=== PATIENT | male | born 1975 | race Caucasian/White ===

== ENCOUNTER 2021-06-03 21:55 | Inpatient (IN) | payer OTHER ==
[~2021-06-03] VITALS: Ht 188 cm; Wt 144.6 kg
[~2021-06-03 21:55] MED LIST: CITALOPRAM HBR40 MG PO; CYCLOBENZAPRINE10 MG PO; HYDROCODON-ACE1 EAC8 PO; IBUPROFEN800 MG PO; TESTOSTERO100 MG/1 M IM
--- OUTSIDE RECORDS SUMMARY | 2021-06-03 21:58 | XMS ---
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 Madelaine VISIT COUNT (12 MO.) 1 DYAN Pacheco TOTAL 1 NOTE: Visits indicate total known visits. ED/UCC VISIT TRACKING (12 MO.) 06/03/2021 21:56 DYAN [place] TYPE: Emergency COMPLAINT: - FLU SYMPTOMS INPATIENT VISIT TRACKING (12 MO.) No inpatient visits to display in this time frame [email or web address]
[2021-06-03] MEDS ORDERED: ZOLPIDEM TARTRA10 MG PO (22:58)
[2021-06-03] MEDS ORDERED: NYSTATIN100000 UN1 PO (22:58)
[2021-06-03] MEDS ORDERED: OMEPRAZOLE40 MG PO (22:58)
[2021-06-03] MEDS ORDERED: DULOXETINE HCL60 MG PO (22:58)
[2021-06-03] MEDS ORDERED: TESTOSTERO200 MG/1 M (22:58)
[2021-06-03] MEDS ORDERED: LOSARTAN-HCTZ1 EAC1 PO (22:58)
[2021-06-03] MEDS ORDERED: PRAZOSIN HCL1 MG PO (22:58)
[2021-06-03] MEDS ORDERED: BUPROPION XL450 MG PO (22:58)
[2021-06-03] MEDS ORDERED: ZANAFLEX4 MG PO (22:59)
[2021-06-03] MEDS ORDERED: METOPROLOL TART50 MG PO (22:59)
[2021-06-03] MEDS ORDERED: METOPROLOL TART25 MG (22:59)
--- NOTE | 2021-06-04 03:46 | NUR ---
pt ARRIVED TO FLOOR AT 0255 VIA STRETCHER. MOVED FROM STRETCHER TO BED INDEPENDENTLY, UNSTEADY ON FEET. pt ANXIOUS DOES NOT LIKE BEING ALONE. DISCUSSED VISITOR POLICY. pt REPORTS PAIN IMPROVED WITH PAIN MEDICATION. REPORTS NAUSEA, REQUESTED SOMETHING TO EAT. EDUCATION DONE. pt SITTING ON THE SIDE OF THE BED, SKIN HOT, PIN[place] RED DOTS NOTED ON CHEST, BACK AND ABD. LUNGS CLEAR, SATS MID 90'S ON ROOM AIR. HR 110'S. pt REFUSING SOME CARES AT THIS TIME. CALL LIGHT WITHIN REACH. LIVES AT HOME WITH MOTHER AND GIRLFRIEND. UNABLE TO DO "CHORES" WITHOUT ASSISTANCE.
--- NOTE | 2021-06-04 04:31 | NUR ---
IN TO TAKE BP. pt REQUESTED TO GET UP TO VOID. REQUIRED LIGHT ASSISTANCE TO BATHROOM. HR 120 WHILE AMBULATING. pt VOIDED DARK URINE. REPORTED A LIQUID BM. BACK TO BED. MORE STEADY ON FEET, DID NOT REQUIRE ASSISTANCE. OFFERED CHAIR. pt REQUESTED TO SIT ON THE SIDE OF THE BED AND LOOK OUT THE DOOR. pt REPORTS FEELING LONELY AND ASKED FOR SOMETHING TO KNOCK HIM OUT OR A SLEEP AID. REMINDED pt IT IS IN THE EARLY AM AND ENCOURAGED REST. CALL LIGHT WTIHIN REACH.
--- NOTE | 2021-06-04 05:21 | NUR ---
CALL LIGHT ON. pt UP TO VOID, REPORTED A BM, NOTHING NOTED IN TOILET. pt SETTLED IN THE CHAIR. CALL LIGHT WITHIN REACH. PRN PAIN MEDICATION GIVEN FOR 8/10 PAIN.
--- NOTE | 2021-06-04 07:08 | NUR ---
CALL LIGHT ON. pt UP TO VOID AND BACK TO CHAIR. STEADY ON FEET. REPORTED A HEADACHE 7/10 AND A "LITTLE" NAUSEA. CALL LIGHT WITHIN REACH.
--- NOTE | 2021-06-04 07:30 | NUR ---
report recieved. PATIENT IS SITTING UP IN CHAIR.
--- NOTE | 2021-06-04 08:30 | NUR ---
assessment done. DR. DEL RIO IN ROOM TO SEE PATIENT. PATIENT C/O OF NAUSEA AND OVER ALL DISCOMFORT. HAS FLAT AFFECT. IVF PATENT.
--- NOTE | 2021-06-04 08:45 | NUR ---
AMBULATED TO BR TO VOID TO URINAL AND EXPELL LIQUID STOOL, STOOL SENT TO LAB. PATIENT IS STABLE ON FEET. C/O SLIGHT DIZZINESS WITH MOVENENT. SITTING IN CHAIR, STATES "I DON'T FEEL WELL AT ALL" REQUESTING NAUSEA AND PAIN MEDICATION. WILL GIVE THIS WHEN AVAILABLE.
--- NOTE | 2021-06-04 09:45 | NUR ---
ZOFRAN 4 MG IV A LONG WITH ROUTINE MEDICATIONS.
--- NOTE | 2021-06-04 10:05 | NUR ---
OXYCODONE 10 MG PO GIVEN FOR PAIN. WILL START BOWEL TODAY, WILL HAVE COLONOSCOPY TOMORROW.
--- NOTE | 2021-06-04 10:20 | NUR ---
UP TO BR TO VOID AND EXPELL SMALL LIQUID STOOL, THIS STOOL SPEC SENT TO LAB. PATIENT NOW SITTNG AT BEDSIDE. CONTINUES TO C/O PAIN AND NAUSEA. MAG INFUSING TO R ARM IV SITE.
--- NOTE | 2021-06-04 10:57 | NUR ---
CALL LIGHT ANSWERED. PATIENT SITTING ON SIDE OF BED. REQUESTS SPOON FOR JELLO AND C/O OF PAIN IN IV SITE IN RIGHT AC. WARM BLANKET PROVIDED FOR COMFORT ON RIGHT ARM, FARAZ NORTON NOTIFIED. CALL LIGHT AND PERSONAL ITEMS IN PLACE.
--- NOTE | 2021-06-04 11:17 | NUR ---
CONTINUE TO SIT AT BEDSIDE, VISITING WITH HIS MOTHER. PATIENT GETS VERY EMOTIONAL AT TIMES. NEEDS MUCH EMOTIONAL SUPPORT.
--- NOTE | 2021-06-04 11:45 | NUR ---
DR. GUERRIER HERE TO SEE PATIENT.
--- NOTE | 2021-06-04 12:10 | NUR ---
THIS FEDERAL LAW CLERK ANSWERED CALL LIGHT. PATIENT REQUESTS ASSISTANCE TO BR. MOTHER IN ROOM. PATIENT BACK TO SIDE OF BED, TABLE WITH PERSONAL ITEMS AND CALL LIGHT IN REACH. PATIENT NOT SURE IF HE WANTS A BEDBATH "I MAY JUST SKIP IT TODAY"
--- NOTE | 2021-06-04 12:20 | NUR ---
ASSESSMENT DONE. CONTINUES TO C/O OVER ALL DISCOMFORT. STOOD AT BEDSIDE TO VOID TO URINAL 100 ML OF CONCENTRATED URINE. PATIENT STATES HE STILL FEELS LIKE HE NEEDS TO VOID. BLADDER SCAN DONE AND SHOWED TOTAL OF 14 ML IN BLADDER. PATIENT IS LAYING IN BED, VISITING WITH HIS MOTHER. MG RIDERS INFUSED. IVF INFUSING AT 200 ML/HR. ENC TO TAKE BOWEL PREP.
--- NOTE | 2021-06-04 13:42 | EKG ---
[facility] [address] [facility] [place] [address] Signed Sinus tachycardia Left anterior fascicular block Minimal voltage criteria for LVH, may be normal variant Abnormal ECG No previous ECGs available Confirmed by VANDA DEL RIO MD ([id number]) on 06/04/2021 1:41:56 PM Electronically Signed By: VANDA DEL RIO MD 06/04/21 1342 PATIENT NAME: ETHANCRESCENCIOJENNY Electrocardiogram DATE OF : 73 PHYSICIAN: VANDA DEL RIO MD REPORT #: [id number] REPORT IS CONFIDENTIAL AND NOT TO BE RELEASED WITHOUT AUTHORIZATION
--- NOTE | 2021-06-04 13:43 | NUR ---
MED REC COMPLETED BY PHARMACY
--- NOTE | 2021-06-04 13:45 | NUR ---
UP TO BR FOR BM, CONTINUES TO HAVE SMALL LIQ STOOLS. MOTHER REMAINS IN ROOM.
--- NOTE | 2021-06-04 14:04 | NUR ---
PT ON PRECAUTIONS, WILL FOLLOW NEEDED
--- NOTE | 2021-06-04 14:47 | NUR ---
PATIENT UP AND IN SHOWER AT THIS TIME. MOTHER IN ROOM.
--- NOTE | 2021-06-04 15:30 | NUR ---
ASSESSMENT UNCHANGED. OXYCODONE 10 MG PO GIVEN FOR PAIN.
--- NOTE | 2021-06-04 16:35 | NUR ---
PATIENT SUPPORT PERSON (MOTHER ) REMAINS IN ROOM. PATIENT HAS LONG HISTORY OR ANXIETY, PTSD, DEPRESSION, NIGHT TERRORS. SINCE PATIENT SUPPORT PERSON HAS BEEN AT BEDSIDE THEY PATIENT HAS BEEN MORE CALM AND LESS EMOTIONAL. PATIENT TO BE TRANSFERRED TO [facility] THIS EVENING.
--- NOTE | 2021-06-04 17:00 | NUR ---
REPORT TO MED-SURG.
--- NOTE | 2021-06-04 17:20 | NUR ---
TO MED-SURG VIA BED.
--- NOTE | 2021-06-04 17:22 | NUR ---
PT TRANSFERED FROM CCU ON BED WITH MOTHER AND RN CIERRA. PT RATES PAIN 6\10 DECLINED TYLENOL. REPORTS A LITTLE NAUSEA. IV CURRENTLY INFUSING AT 200ML HR. REPORTS PAIN IN THE RIGHT WRIST, JUST NOTICED IT AND DOES NOT KNOW WHAT HE DID TO IT. ASSESSED IT AND CAN NOT SEE ANY DEFICITS.
--- NOTE | 2021-06-04 18:08 | NUR ---
PATIENT UP TO BATHROOM TO VOID, BM WITH SBA. MOM IS IN ROOM WITH PATIENT.
--- NOTE | 2021-06-04 19:24 | NUR ---
REPORT RECEIVED FROM FARAZ ROD. ISOLATION PRECAUTIONS. ASSUMED CARE OF pt.
--- NOTE | 2021-06-04 20:30 | NUR ---
PT CALLED AT 2020 AFTER HE WAS DONE IN THE BATHOOM. BM FULLY BROWN, WITH SEDIMENT. NOTED PT WITH STILL NEARLY FULL BOTTLE OF BOWEL PREP. EDUCATED PT ON TAKING THE REST. HE WAS RELUCTANT, BUT EXPLAINED WHY. PT PRIMARY RN AWARE OF WHAT PT SAID. SET UP COMMODE NEXT TO BED, WITH CLEANING SUPPLIES AND GARBAGE WITHIN REACH. ENCOURAGED PT TO CALL WHEN HE IS DONE WITH USING THE BSC. CALL LIGHT WITHIN REACH.
--- NOTE | 2021-06-04 21:25 | NUR ---
IN pt ROOM FOR VS, BP 165/104. SCHEDULED MEDICATIONS ADMINISTERED. pt RATES PAIN 8/10 IN BACK. PRN PAIN MEDICATION ADMINISTERED. ASSESSMENT COMPLETE. pt UP TO BSC AT THIS TIME FOR BM. pt ENCOURAGED TO FINISH BOWEL PREP. LIQUID STOOL BROWN IN COLOR. IV SITE FLUSHED WNL, IV ANTIBIOTIC INFUSING WNL. CALL LIGHT IN REACH.
--- NOTE | 2021-06-04 22:55 | NUR ---
CALL LIGHT ANSWERED. pt C/O NAUSEA. PRN NAUSEA MEDICATION ADMINISTERED. IVF INFUSING WNL. BSC EMPTIED, BROWN LIQUID STOOL. URINE EMPTIED FROM URINAL, CONCENTRATED. pt REQUESTING MORE PAIN MEDICATION FOR 10/10 PAIN IN GROIN, BACK AND SLEEP MEDICATION. MEDICATIONS ADMINISTERED AT THIS TIME, SEE EMAR. CALL LIGHT IN REACH. NO ADDITIONAL REQUESTS.
--- NOTE | 2021-06-05 00:27 | NUR ---
CALL LIGHT ANSWERED, IV PUMP ALARMING. DISTAL OCCLUSION ON PUMP. INFUSING WNL ORDERED. URINE EMPTIED, LIQUID STOOL EMPTIED, LIGHT BROWN/GREEN IN COLOR. pt NPO AT THIS TIME. NO ADDITIONAL NEEDS. CALL LIGHT IN REACH.
--- NOTE | 2021-06-05 02:28 | NUR ---
pt RESTING IN BED. LIGHTS OFF IN ROOM. NO DISTRESS NOTED. IVF INFUSING ORDERED.
--- NOTE | 2021-06-05 03:31 | NUR ---
NEW BAG IVF INFUSING WNL. pt RESTING ON BED ON BACK, EYES CLOSED, SNORING. NO DISTRESS NOTED. LIGHTS OFF IN ROOM. CALL LIGHT IN REACH.
--- NOTE | 2021-06-05 05:45 | NUR ---
CALL LIGHT ANSWERED. WARM BLANKET PROVIDED REQUESTED. PRN PAIN MEDICATION ADMINISTERED FOR 8/10 REPORTED GENERAL PAIN, BACK PAIN. BOWEL TONES ACTIVE X 4, ABD SOFT. BSC EMPTIED, CLEAR GREEN STOOL. URINAL EMPTIED. pt C/O NAUSEA, PRN MEDICATION ADMINISTERED. CALL LIGHT IN REACH.
--- NOTE | 2021-06-05 06:51 | CONS ---
[facility] [address] [place], [place] [address] Signed DATE OF CONSULTATION: 06/04/2021 CHIEF COMPLAINT: Lower abdominal pain. HISTORY OF PRESENT ILLNESS: Izaiah is a 45-year-old gentleman who is significantly disabled and still lives with his mother. He drives once in a while, but is not , has no children. Apparently, he has had troubles with his intestines clear back to when he was a kid. He describes multiple colonoscopies in the past. He thinks he had one somewhere in his late 30s or early 40s with Dr. Schulz. He is pretty sure colonic polyps have been removed. His mom is with him at the bedside today. She apparently has had colonoscopies with Dr. Schulz as well. She had cancerous polyps requiring a colectomy with Dr. Schulz. Neither one of them recognize the term ulcerative colitis or Crohn disease. He has had trouble with oral sores and a toothache and is down now about 50 pounds over the last couple of months. He took an antibiotic, but he does not recall that was specifically for the tooth. He describes alternating constipation and diarrhea. He said that he was constipated, so we took some enemas and laxatives and finally got the stool to come out and now, he is having diarrhea. He is having bilateral lower abdominal pain and feeling a little nauseated and vomiting. He apparently was COVID positive and had it a few weeks ago. He does not seem to have any COVID symptoms currently specifically with respect to the GI system. He came to the emergency room last night where he had some lower abdominal tenderness and elevated white count. Chest x-ray was unremarkable. His CT scan of abdomen and pelvis shows what looks like some inflammatory changes in the transverse colon, left colon and rectosigmoid junction. He has been admitted to the Internal Medicine Service and started on IV fluids and magnesium replacement. I was asked to see him in consultation for consideration of a colonoscopy. PAST MEDICAL HISTORY: Chronic pain, arthritis, blood disorder, fibromyalgia, depression, PTSD, night terrors, chronic diarrhea, hypertension, gastroesophageal reflux disease, insomnia, colonic polyps, and obesity. PAST SURGICAL HISTORY: Cholecystectomy, tonsillectomy, left knee surgery, scrotal surgery, tympanostomy and multiple colonoscopies. SOCIAL HISTORY: He seldom has a drink, not sure if he smokes. He lives with his mother at [phone]. Apparently, she is getting next week and Izaiah is engaged to be although has no children, they prefer the [email or web address]. Nader Damon is a nurse practitioner. Dr. Schulz has done his colonoscopies in the past. Electronically Signed By: DERRICK GUERRIER MD 06/05/21 0651 PATIENT NAME: IZAIAH SHELDON CONSULTATION DATE OF : 73 REPORT #: [id number] PHYSICIAN: DERRICK GUERRIER MD PCP: NADER DAMON REPORT IS CONFIDENTIAL AND NOT TO BE RELEASED WITHOUT AUTHORIZATION [facility] [address] [place] [id number] Signed FAMILY HISTORY: Mom had cancerous polyps requiring a colectomy with Dr. Schulz. REVIEW OF SYSTEMS: He had 10 systems reviewed. He does not seem to have anything new. In fact, he does not seem overly alarmed about his current situation. ALLERGIES: Sulfa and morphine. MEDICATIONS: Ibuprofen, testosterone, [place] 10 mg, zolpidem, omeprazole, nystatin, bupropion, duloxetine, Prazosin, losartan, hydrochlorothiazide, metoprolol, tizanidine. PHYSICAL EXAMINATION: VITAL SIGNS: His blood pressure is 166/115, heart rate is 101, his respiratory rate is 21, temperature is 98.6, he is 6 feet 2 inches at 315 pounds. GENERAL: Izaiah is a 45-year-old gentleman on the edge of his bed with his liquid diet. His mom is at the bedside. He appears chronically depressed. He is quite large even though he has lost 50 pounds. ABDOMEN: Obese, but soft. He points to his lower abdomen as the area of tenderness. RECTAL: Not performed currently. LABORATORY DATA: His white blood count is 17.1, hemoglobin 17, neutrophils 83, BUN 19, creatinine 1.08, glucose 101. Urinalysis showed small blood. Magnesium is 1.5, total bilirubin is 1.3, albumin is 4.1. COVID was positive. Stool studies are pending. RADIOGRAPHIC STUDIES: The chest x-ray was unremarkable. The CT scan showed inflammatory changes to the transverse colon, left colon, rectosigmoid junction. Unfortunately, we cannot get our computer system up currently. ASSESSMENT/PLAN: Izaiah is a 45-year-old obese gentleman, who presents as above. He probably has at least some level of colitis from the transverse colon down to his left colon. It could be C difficile colitis since he had antibiotics a month or so ago. It could just be a transient self-limiting colitis. It seems less likely that he would have ulcerative colitis or Crohn's colitis given the fact he has undergone colonoscopy so many times. He is also a little dehydrated. He has been admitted to the Internal Medicine Service. He is receiving IV fluids, clear liquid diet and some laxatives. I have been asked to see him and perform a colonoscopy tomorrow with monitored anesthesia care given his very heavy round face, heavy neck, chest and abdomen, medical issues. Hopefully, we can at least go up far enough to get a few biopsies. I have reviewed colonoscopy with Izaiah Electronically Signed By: DERRICK GUERRIER MD 06/05/21 0651 PATIENT NAME: IZAIAH SHELDON CONSULTATION DATE OF : 73 REPORT #: [id number] PHYSICIAN: DERRICK GUERRIER MD PCP: NADER DAMON REPORT IS CONFIDENTIAL AND NOT TO BE RELEASED WITHOUT AUTHORIZATION [facility] [address] [place], [place] [address] Signed and his mother. I explained that we might just do a limited colonoscopy given his acute situation. He may need additional colonoscopies in the future given his personal history of colonic polyps. We will put him as an add on for later in the morning. They have expressed understanding and agreed to above plan. There is risk including, but not limited to gas bloating, crampy abdominal pain, bleeding, perforation requiring surgery, and missed diagnosis. They have expressed understanding and agreed to above plan. MD POWER Lynne/FREDL /[id number] cc: MD Nader Lynne Copies: DERRICK GUERRIER MD ~ Electronically Signed By: DERRICK GUERRIER MD 06/05/21 0651 PATIENT NAME: IZAIAH SHELDON CONSULTATION DATE OF : 73 REPORT #: [id number] PHYSICIAN: DERRICK GUERRIER MD PCP: NADER DAMON REPORT IS CONFIDENTIAL AND NOT TO BE RELEASED WITHOUT AUTHORIZATION
--- NOTE | 2021-06-05 07:00 | NUR ---
Report received from Leydi RUTH. Pt resting in bed with eyes closed, even and unlabored respirations. No needs identified at this time, call light in reach.
--- NOTE | 2021-06-05 09:05 | NUR ---
Scheduled medications administered, assessment complete. Pt drowsy resting in bed, awakens to voice to answer questions. Able to take pills whole with sip of water. IVF infusing WNL. FILLER SIFTER MACHINE in room to discuss upcoming procedure. VS, I/Os complete.
--- NOTE | 2021-06-05 09:45 | NUR ---
Spoke with mom as pt has gone for colonoscopy. She states she is his cg due to disability. He and his fiance live with her and she will be getting in December and move out. She states son recently starting seeing Carol Damon and likes her. She hopes he will start counseling in the future as his counseling with [facility] did not go well. Pt has good stamps. Mom denies other needs. We did discuss [employer] and she did not feel they needed anything further.
--- NOTE | 2021-06-05 10:12 | NUR ---
06/05/21 1012 Araseli Shaw 1010 PATIENT IN ENDO FOR RECOVERY. PATIENT UNRESPONSIVE ON FIRST ASSESSMENT. RESP EVEN AND UNLABORED, SNORING. MASK AT 6 LITERS.
--- NOTE | 2021-06-05 11:00 | NUR ---
Pt returns from procedure, VS complete, pt ambulates to BR to void and passing gas. States no needs at this time, mother at bedside and attentive to patient
--- NOTE | 2021-06-05 11:30 | NUR ---
IV saline locked, PRN tylenol provided for back pain
[2021-06-05] MEDS ORDERED: TESTOSTERO200 MG/1 M IM (12:12)
--- NOTE | 2021-06-05 12:36 | NUR ---
PT STILL UNDER PRECAUTIONS, WILL FOLLOW NEEDED
--- NOTE | 2021-06-05 14:05 | NUR ---
Patient tolerated eating sandwich and pudding. VS and I/Os complete. Assessment complete. Pt sitting at edge of bed, mother at bedside and states patient is "looking and feeling much better". Fresh water provided, no further needs, call light in reach
--- NOTE | 2021-06-05 15:32 | NUR ---
Call light answered, pt requests PRN pain medication for 5/10 back, neck pain. Pt states having no GI symptoms, scant amounts of liquid stool but no bleeding noted, no pain. No nausea after lunch. No further needs, call light in reach.
--- NOTE | 2021-06-05 17:15 | NUR ---
Medications administered, pt ate 100% of regular diet dinner, no nausea. States having no needs and assessment WNL
--- NOTE | 2021-06-05 19:27 | NUR ---
REPORT RECEIVED FROM FARAZ TAMAYO. ISOLATION PRECAUTIONS. ASSUMED CARE OF pt.
--- NOTE | 2021-06-05 22:22 | NUR ---
pt SITTING UP IN BED WATCHING TV. DENIES NAUSEA. RATES PAIN 8/10 IN BACK. PRN PAIN MEDICATION ADMINISTERED REQUESTED. PRN SLEEP MEDICATION ADMINISTERED. IV SITE FLUSHED WNL, SL. VSS. ASSESSMENT COMPLETE. pt INSTRUCTED TO VOID IN URINAL. VERBALIZES UNDERSTANDING. CALL LIGHT IN REACH.
--- NOTE | 2021-06-06 00:44 | NUR ---
pt RESTING IN BED AWAKE WATCHING TV. ICE WATER PROVIDED REQUESTED. NO ADDITIONAL NEEDS. CALL LIGHT IN REACH.
--- NOTE | 2021-06-06 03:23 | NUR ---
pt RESTING IN BED, SNORING. LIGHTS OFF IN ROOM. NO DISTRESS NOTED.
--- NOTE | 2021-06-06 06:26 | NUR ---
CHECKED ON pt. RESTING IN BED AWAKE, DENIES ANY NEEDS. CALL LIGHT IN REACH.
--- NOTE | 2021-06-06 07:15 | NUR ---
Report received from Leydi RUTH. Pt resting in bed watching tv, no needs at this time. Will continue plan of care.
--- NOTE | 2021-06-06 07:21 | OR ---
[facility] [address] [place], [place] [address] Signed DATE OF OPERATION: 06/05/2021 SURGEON: Derrick Guerrier MD PREOPERATIVE DIAGNOSES: 1. Chronic constipation and diarrhea. 2. Bilateral lower abdominal pain. 3. Mild nausea and vomiting. POSTOPERATIVE DIAGNOSES: 1. Proctitis. 2. Minimal to moderate internal hemorrhoids. PROCEDURES: Colonoscopy with cold biopsies in the right colon, hepatic flexure, transverse colon, left colon, sigmoid colon, proximal rectum, mid rectum and distal rectum. ESTIMATED BLOOD LOSS: None. FINDINGS: The entire colon was unremarkable. The rectum showed some irritation at the anus up to the mid rectum and then it dissipated as we went through the proximal rectum. The patient has recently taken enemas and laxatives as well. INDICATIONS: Izaiah is a 45-year-old obese gentleman, who has had trouble with constipation and diarrhea his whole life. He is very used to having the need for enemas, suppositories and laxatives. He has had many colonoscopies clear back to when he was just a kid. He continues to live with his mother and is significantly disabled. He was having some generalized abdominal pain and constipation. He had taken some enemas and suppositories and laxatives before . He did have mild nausea and vomiting as well. He also had some trouble a couple of months ago with sores inside his mouth and a bad tooth. He said he had to take some antibiotics. He has lost 50 pounds. He came into the emergency room for evaluation. He is quite dehydrated and his white count was initially 17.1, it is now returned to normal at 7.2. His hemoglobin was at 17.2, it is down to 13.7, neutrophils are 83, they were down to 63. His albumin had been up at 4.1, it is down to 2.9. His sedimentation rate was 25. The C-reactive protein is pending. His lactoferrin is pending. His C diff toxin is negative. He ended up with a CT scan of the abdomen and pelvis and that showed some mild inflammatory changes in the Electronically Signed By: DERRICK GUERRIER MD 06/06/21 0721 PATIENT NAME: IZAIAH SHELDON OPERATIVE REPORT DATE OF : 73 REPORT #: [id number] PHYSICIAN: DERRICK GUERRIER MD PCP: NADER BUCKLEY REPORT IS CONFIDENTIAL AND NOT TO BE RELEASED WITHOUT AUTHORIZATION [facility] [address] [place], [place] [address] Signed transverse colon, left colon down around the rectosigmoid junction. Chest x-ray was unremarkable. He had COVID a number of weeks ago. He seems to be asymptomatic in that regard at this time. Although, his COVID test remains positive. He had been admitted to the Internal Medicine Service. He has been hydrated and started on Cipro and Flagyl. I had been asked to see him as a general surgeon on-call for a colonoscopy. I met with Izaiah and his mother yesterday. They are both very familiar with colonoscopies. He thinks he has had polyps in the past. I reviewed colonoscopy with him. They understand there is risk including, but not limited to gas bloating, crampy abdominal pain, bleeding, perforation requiring surgery, and missed diagnosis. Also because of his very round face, heavy neck, chest and abdomen, we asked that an anesthesia provider to help us with increased monitoring and sedation with propofol. They had expressed understanding and wished to proceed. PROCEDURE NOTE: Izaiah was taken into our endoscopy suite and placed in the left lateral decubitus position. He was maintained on IV propofol per our nurse transfusion aide. A digital rectal exam was performed and this was unremarkable. No evidence of any perianal fistulas. Good sphincter tone. The adult colonoscope was introduced and we could see inflammatory changes at the anus up to the mid rectum and it dissipated as we came to the proximal rectum. The sigmoid colon, left colon, transverse colon, right colon and cecum were all unremarkable. We could easily see the appendiceal orifice and the ileocecal valve. We did not intubate the ileum. He had some routine green bile in the cecum that was easily suctioned out. The scope was then slowly withdrawn. We took pictures and biopsies throughout for photodocumentation and pathologic documentation. We did not specifically see any diverticula. There were no polyps. Again, the same findings on the rectum. We had retroflexed the scope in the rectum, he does have minimal to moderate internal hemorrhoid columns. After this, the gas was suctioned out and colonoscope removed. Izaiah tolerated the procedure quite well. RECOMMENDATIONS: Izaiah will be returned to his room on the Internal Medicine Service. His proctitis may be associated with the enemas and the suppositories. We probably could wait for his biopsies before initiating any treatment. Otherwise, this may all be self-limiting. In addition, he is welcome to follow up in my office in a week or two for the final biopsy results. Derrick Guerrier MD Electronically Signed By: DERRICK GUERRIER MD 06/06/21 0721 PATIENT NAME: IZAIAH SHELDON OPERATIVE REPORT DATE OF : 73 REPORT #: [id number] PHYSICIAN: DERRICK GURERIER MD PCP: NADER BUCKLEY REPORT IS CONFIDENTIAL AND NOT TO BE RELEASED WITHOUT AUTHORIZATION [place] [id number] [facility] [place] [place] [address] Signed [facility] /[id number] cc: AWILDA Owens MD Copies: DERRICK GUERRIER MD ~ Electronically Signed By: DERRICK GUERRIER MD 06/06/21 0721 PATIENT NAME: IZAIAH SHELDON OPERATIVE REPORT DATE OF : 73 REPORT #: [id number] PHYSICIAN: DERRICK GUERRIER MD PCP: NADER BUCKLEY REPORT IS CONFIDENTIAL AND NOT TO BE RELEASED WITHOUT AUTHORIZATION
--- NOTE | 2021-06-06 08:45 | NUR ---
Scheduled medications administered, assessment complete. Pt requests PRN pain medication for 9/10 back pain, states that he normally takes hydrocodone at home to manage this pain. PRN tylenol also administered. Pt and his mother questioning about positive covid test, educated about post discharge precautions and care. Pt states he feels ready to discharge. VS and I/O's complete.
--- NOTE | 2021-06-06 10:30 | NUR ---
Spoke with pt. Mom in room. Pt denies needs. May go home today.
[2021-06-06] MEDS ORDERED: CIPROFLOXACIN500 MG PO (12:32)
[2021-06-06] MEDS ORDERED: METRONIDAZOLE500 MG PO (12:33)
--- NOTE | 2021-06-06 12:41 | NUR ---
In room to administer scheduled PO ABX, pt states having 4/10 tolerable pain in back and denies PRN medications at this time. Lunch provided to patient and caregiver. They state all questions and concerns addressed with MD and have no needs at this time.
--- NOTE | 2021-06-06 13:25 | NUR ---
All discharge education provided and prescriptions provided, all questions answered and concerns addressed. VSS, A+O, IV removed WNL. Pt dresses self. All belongings returned. Mother to provide ride home. DC'd via , no needs identified
--- NOTE | 2021-06-06 14:26 | PATH ---
[facility] [address], [place] [address] Signed SPECIMEN(S): A ASCENDING/RIGHT COLON BIOPSY SPECIMEN(S): B HEPATIC FLEXURE BIOPSY SPECIMEN(S): C TRANSVERSE COLON BIOPSY SPECIMEN(S): D DESCENDING/LEFT COLON BIOPSY SPECIMEN(S): E SIGMOID COLON BIOPSY SPECIMEN(S): F PROXIMAL RECTAL BIOPSY SPECIMEN(S): G MID RECTAL BIOPSY SPECIMEN(S): H DISTAL RECTAL BIOPSY SPECIMEN SOURCE: A. ASCENDING/RIGHT COLON BIOPSY B. HEPATIC FLEXURE BIOPSY C. TRANSVERSE COLON BIOPSY D. DESCENDING/LEFT COLON BIOPSY E. SIGMOID COLON BIOPSY F. PROXIMAL RECTAL BIOPSY G. MID RECTAL BIOPSY H. DISTAL RECTAL BIOPSY CLINICAL HISTORY: COVID and colitis. Pre: Chronic constipation/diarrhea, , lower abdominal pain, mild N/V. Post: Internal/external hemorrhoids, proctitis. MICROSCOPIC DESCRIPTION: Histologic sections of all submitted blocks are examined by light microscopy. These findings, together with the gross examination, support the pathologic diagnosis. FINAL PATHOLOGIC DIAGNOSIS: A. Colon, ascending/right, biopsy: - Colonic mucosa with no significant pathologic changes. B. Colon, hepatic flexure, biopsy: - Colonic mucosa with no significant pathologic changes. C. Colon, transverse, biopsy: - Colonic mucosa with no significant pathologic changes. D. Colon, descending/left, biopsy: - Colonic mucosa with no significant pathologic changes. E. Colon, sigmoid, biopsy: - Colonic mucosa with no significant pathologic changes. F. 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 G. 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 H. 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 COMMENT: For parts F through H, histologic sections show lamina propria hemorrhage and mild hyalinization, with superficial withering of the crypts with regenerative changes. These features are suggestive of an ischemic pattern colitis. While these findings are most common in ischemic colitis, the differential diagnosis is broad and would include mechanical obstruction, infections, vasculitis, and medication effect. Correlation with clinical and endoscopic information is needed. BRP:llc:[id number] GROSS DESCRIPTION: Eight specimens are received in eight containers labeled with "TH." A. The specimen, labeled "TH, 1," and designated on the requisition "ascending/right biopsy," is received in formalin and consists of one fragment of pink-hawkins tissue (0.5 cm in greatest dimension). The specimen is submitted entirely in cassette (A1). B. The specimen, labeled "TH, 2," and designated on the requisition "hepatic flexure biopsy," is received in formalin and consists of one fragment of pink-hawkins tissue (0.2 cm in greatest dimension). The specimen is submitted entirely in cassette (B1). C. The specimen, labeled "TH, 3," and designated on the requisition "transverse biopsy," is received in formalin and consists of one fragment of pink-hawkins tissue (0.4 cm in greatest dimension). The specimen is submitted entirely in cassette (C1). D. The specimen, labeled "TH, 4," and designated on the requisition "descending/left colon biopsy," is received in formalin and consists of one fragment of pink-hawkins tissue (0.4 cm in greatest dimension). The specimen is submitted entirely in cassette (D1). E. The specimen, labeled "TH, 5," and designated on the requisition "sigmoid biopsy," is received in formalin and consists of one fragment of pink-hawkins tissue (0.3 cm in greatest dimension). The specimen is submitted entirely in cassette (E1). F. The specimen, labeled ", 6," and designated on the requisition "proximal rectal biopsy," is received in formalin and consists of two fragments of pink-hawkins tissue (0.3 cm in greatest dimension). PATIENT NAME: JENNY SHELDON PATHOLOGY DATE OF : 73 REPORT #: [id number] PHYSICIAN: CHUY VILLAFUERTE PCP: NADER BUCKLEY REPORT IS CONFIDENTIAL AND NOT TO BE RELEASED WITHOUT AUTHORIZATION [facility] [address], [place] [address] Signed The specimen is submitted entirely in cassette (F1). G. The specimen, labeled ", 7," and designated on the requisition "mid rectal biopsy," is received in formalin and consists of two fragments of pink-hawkins tissue (0.3 cm in greatest dimension). The specimen is submitted entirely in cassette (G1). H. The specimen labeled "TH, 8," and designated on the requisition "distal rectal biopsy," is received in formalin and consists of two fragments of pink-hawkins tissue (0.2 cm in greatest dimension). The specimen is submitted entirely in cassette (H1). AC (under the direct supervision of a pathologist) The Gross Description was prepared using a voice recognition system. The report was reviewed for accuracy; however, sound-alike word errors, addition and/or deletions may occur. If there is any question about this report, please contact Client Services. PERFORMING LABORATORY: The technical component was [place] [address] ([employer] Director: Kailey Eden MD; CLIA# [id number]). Professional interpretation was performed [place] [facility] [address] (CLIA# [id number]). Diagnostician: Aston Alonzo MD Pathologist Electronically Signed 06/06/2021 Copies: ~ PATIENT NAME: JENNY SHELDON PATHOLOGY DATE OF : 73 REPORT #: [id number] PHYSICIAN: CHUY PATHOLOGY PCP: NADER BUCKLEY REPORT IS CONFIDENTIAL AND NOT TO BE RELEASED WITHOUT AUTHORIZATION
[2021-06-14] MEDS ORDERED: LOSARTAN-HCTZ1 EAC1 PO (09:44)
[2021-06-14] MEDS ORDERED: CIPRO500 MG PO (09:48)
[2021-06-14] MEDS ORDERED: IBUPROFEN800 MG PO (10:16)
[2021-06-14] MEDS ORDERED: METRONIDAZOLE500 MG PO (10:16)
== END 2021-06-06 13:30 | disposition home or self-care (01) | DRG 393 ==
LOC: ED 21:55 → CCU 21:57 → MS 06-04 17:19
PROVIDERS: Colon & Rectal Surgery; ADMIT Internal Medicine; ATTEND Internal Medicine
PROC: 8E0ZXY6 Isolation (ICD-10-PCS; 2021-06-04)
PROC: 0DBL8ZX Excision of Transverse Colon, Via Natural or Artificial Opening Endoscopic, Diagnostic (ICD-10-PCS; 2021-06-05)
PROC: 0DBN8ZX Excision of Sigmoid Colon, Via Natural or Artificial Opening Endoscopic, Diagnostic (ICD-10-PCS; 2021-06-05)
PROC: 0DBP8ZX Excision of Rectum, Via Natural or Artificial Opening Endoscopic, Diagnostic (ICD-10-PCS; 2021-06-05)
PROC: 0DBM8ZX Excision of Descending Colon, Via Natural or Artificial Opening Endoscopic, Diagnostic (ICD-10-PCS; 2021-06-05)
PROC: 0DBK8ZX Excision of Ascending Colon, Via Natural or Artificial Opening Endoscopic, Diagnostic (ICD-10-PCS; principal; 2021-06-05 10:00)
DX: K62.89 Other specified diseases of anus and rectum (principal); U07.1 COVID-19; K52.9 Noninfective gastroenteritis and colitis, unspecified; K21.9 Gastro-esophageal reflux disease without esophagitis; F32.A Depression, unspecified; F43.10 Post-traumatic stress disorder, unspecified; E83.42 Hypomagnesemia; G89.4 Chronic pain syndrome; I10 Essential (primary) hypertension; K64.8 Other hemorrhoids; K59.00 Constipation, unspecified; Z88.8 Allergy status to other drugs, medicaments and biological substances; Z88.2 Allergy status to sulfonamides; Z88.5 Allergy status to narcotic agent; M79.7 Fibromyalgia; Z90.49 Acquired absence of other specified parts of digestive tract; Z98.890 Other specified postprocedural states; Z79.899 Other long term (current) drug therapy; E66.01 Morbid (severe) obesity due to excess calories; Z88.6 Allergy status to analgesic agent; F51.04 Psychophysiologic insomnia
CPT/HCPCS: 71045; 74177; 80053; 81001; 83735; 85025; 85651; 86140; 87045; 87177; 87329; 87493; 88305; 93005; 93010; 96367; 96375; 96376; 99285-25; A9270; C9113; C9803; G0378; J0744; J0780; J1170; J1650; J2001; J2405; J2704; J3475; J7030; J7121; Q9967; U0003

== ENCOUNTER 2021-10-02 02:04 | Emergency (ER) | payer OTHER ==
[~2021-10-02] VITALS: Ht 188 cm; Wt 146.1 kg
[~2021-10-02 02:04] MED LIST changes: +BUPROPION XL450 MG PO; +CIPRO500 MG PO; +CIPROFLOXACIN500 MG PO; +DULOXETINE HCL60 MG PO; +LOSARTAN-HCTZ1 EAC1 PO; +METOPROLOL TART25 MG; +METOPROLOL TART50 MG PO; +METRONIDAZOLE500 MG PO; +NYSTATIN100000 UN1 PO; +OMEPRAZOLE40 MG PO; +PRAZOSIN HCL1 MG PO; +TESTOSTERO200 MG/1 M; +TESTOSTERO200 MG/1 M IM; +ZANAFLEX4 MG PO; +ZOLPIDEM TARTRA10 MG PO
--- OUTSIDE RECORDS SUMMARY | 2021-10-02 02:06 | XMS ---
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 E.D. VISIT COUNT (12 MO.) 3 [facility] TOTAL 3 NOTE: Visits indicate total known visits. ED/UCC VISIT TRACKING (12 MO.) 10/02/2021 02:04 [facility] TYPE: Emergency COMPLAINT: - LOW BP, CHEST TIGHTNESS 06/14/2021 03:38 [facility] TYPE: Emergency COMPLAINT: - WEAKNESS 06/03/2021 21:56 [facility] TYPE: Emergency COMPLAINT: - FLU SYMPTOMS INPATIENT VISIT TRACKING (12 MO.) 06/14/2021 03:39 [facility] TYPE: Observation COMPLAINT: - REAL DIAGNOSES: - Psychophysiologic insomnia - Allergy status to narcotic agent - Chronic pain syndrome - Gastro-esophageal reflux disease without esophagitis - Essential (primary) hypertension - Acute kidney failure, unspecified - Allergy status to sulfonamides - Dehydration 06/04/2021 09:25 [facility] TYPE: Medical Surgical COMPLAINT: - COVID COLITIS DIAGNOSES: - Hypomagnesemia - Other specified postprocedural states - Psychophysiologic insomnia - Allergy status to analgesic agent - Psychophysiologic insomnia - Other specified postprocedural states - Post-traumatic stress disorder, unspecified - Allergy status to sulfonamides - Allergy status to other drugs, medicaments and biological substances - Essential (primary) hypertension - Acquired absence of other specified parts of digestive tract - Fibromyalgia - Constipation, unspecified - Allergy status to other drugs, medicaments and biological substances - Essential (primary) hypertension - Hypomagnesemia - Noninfective gastroenteritis and colitis, unspecified - Allergy status to narcotic agent - 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 - Morbid (severe) obesity due to excess calories - Chronic pain syndrome - Allergy status to sulfonamides - Morbid (severe) obesity due to excess calories - Other specified diseases of anus and rectum - Other hemorrhoids - DEPRESSION, UNSPECIFIED - Fibromyalgia - COVID-19 - Other hemorrhoids - DEPRESSION, UNSPECIFIED - Chronic pain syndrome - Other specified diseases of anus and rectum - Acquired absence of other specified parts of digestive tract - Allergy status to analgesic agent - COVID-19 - Post-traumatic stress disorder, unspecified - Constipation, unspecified - Gastro-esophageal reflux disease without esophagitis - 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
--- NOTE | 2021-10-03 17:25 | EKG ---
[facility] [address] [facility] [place] [address] Signed Normal sinus rhythm Nonspecific intraventricular block Minimal voltage criteria for LVH, may be normal variant ( [employer] product ) Abnormal ECG When compared with ECG of 26-SEP-2021 14:55, FL interval has increased ST no longer elevated in Inferior leads Confirmed by VANDA DEL RIO MD ([id number]) on 10/03/2021 5:25:39 PM Electronically Signed By: VANDA DEL RIO MD 10/03/21 1725 PATIENT NAME: JENNY SHELDON Electrocardiogram DATE OF : 73 PHYSICIAN: VANDA DEL RIO MD REPORT #: [id number] REPORT IS CONFIDENTIAL AND NOT TO BE RELEASED WITHOUT AUTHORIZATION
== END 2021-10-02 04:39 | disposition home or self-care (01) ==
LOC: ED 02:04
DX: R07.89 Other chest pain (principal); M19.90 Unspecified osteoarthritis, unspecified site; Z88.2 Allergy status to sulfonamides; Z88.8 Allergy status to other drugs, medicaments and biological substances; Z88.5 Allergy status to narcotic agent; Z79.899 Other long term (current) drug therapy
CPT/HCPCS: 36415; 71045; 80048; 84484; 85025; 85379; 93005; 93010; 99285-25; J7030